=== PATIENT | male | born 1990 | race Caucasian/White ===

== ENCOUNTER 2023-04-24 21:11 | Emergency (ER) | payer OTHER ==
[2023-04-24] MEDS ORDERED: Lidocaine 2% 20 ML MDV INFILT ONE (21:12)
[2023-04-24] MEDS ORDERED: Diphtheria,Pertussis(Acell),Tetanus Vaccine 0.5 ML Syringe IM ONE (23:29)
== END 2023-04-25 00:12 | disposition home or self-care (01) ==
LOC: FB.ED 21:11
DX: S61.212A Laceration without foreign body of right middle finger without damage to nail, initial encounter (principal); Z23 Encounter for immunization; W26.0XXA Contact with knife, initial encounter; Y93.G1 Activity, food preparation and clean up
CPT/HCPCS: 12001; 12006; 90471; 90715; 99282; 99283-25